=== PATIENT | female | born 1965 | race Two or more races ===

== ENCOUNTER 2017-10-14 10:14 | Outpatient (CLI) | payer OTHER | END 2017-10-14 19:23 | disposition home or self-care (01) | LOC: MAMMO 10:14 | DX: Z12.31 Encounter for screening mammogram for malignant neoplasm of breast (principal) ==

== ENCOUNTER 2018-10-23 10:11 | Outpatient (CLI) | payer OTHER | END 2018-10-23 22:22 | disposition home or self-care (01) | LOC: MAMMO 10:11 | DX: Z12.31 Encounter for screening mammogram for malignant neoplasm of breast (principal) ==

== ENCOUNTER 2019-12-07 13:31 | Outpatient (CLI) | payer OTHER | END 2019-12-07 16:00 | disposition home or self-care (01) | LOC: MAMMO 13:31 | DX: Z12.31 Encounter for screening mammogram for malignant neoplasm of breast (principal) ==

== ENCOUNTER 2021-05-05 09:20 | Outpatient (CLI) | payer OTHER | END 2021-05-05 22:41 | disposition home or self-care (01) | LOC: MAMMO 09:20 | PROVIDERS: ATTEND Internal Medicine | DX: Z12.31 Encounter for screening mammogram for malignant neoplasm of breast (principal) ==

== ENCOUNTER 2022-05-14 14:34 | Outpatient (CLI) | payer OTHER | END 2022-05-14 21:12 | disposition home or self-care (01) | LOC: MAMMO 14:34 | PROVIDERS: ATTEND Obstetrics & Gynecology | DX: Z12.31 Encounter for screening mammogram for malignant neoplasm of breast (principal) ==

== ENCOUNTER 2022-06-15 13:34 | Outpatient (CLI) | payer OTHER | END 2022-06-15 18:57 | disposition home or self-care (01) | LOC: US 13:34 | PROVIDERS: ATTEND Internal Medicine | DX: M79.605 Pain in left leg (principal); M25.552 Pain in left hip; S39.012A Strain of muscle, fascia and tendon of lower back, initial encounter; X58.XXXA Exposure to other specified factors, initial encounter; Y93.89 Activity, other specified; Y92.89 Other specified places as the place of occurrence of the external cause ==

== ENCOUNTER 2022-06-16 08:08 | Outpatient (CLI) | payer OTHER | END 2022-06-16 19:18 | disposition home or self-care (01) | LOC: CT 08:08 | PROVIDERS: ATTEND Internal Medicine | DX: M54.50 Low back pain, unspecified (principal) ==

== ENCOUNTER 2023-01-10 09:27 | Outpatient (CLI) | payer OTHER | END 2023-01-10 19:06 | disposition home or self-care (01) | LOC: RAD 09:27 | PROVIDERS: ATTEND Internal Medicine | DX: J40 Bronchitis, not specified as acute or chronic (principal) ==

== ENCOUNTER 2023-03-08 16:39 | Outpatient (CLI) | payer OTHER | END 2023-03-08 19:17 | disposition home or self-care (01) | LOC: RAD 16:39 | PROVIDERS: ATTEND Internal Medicine | DX: M54.2 Cervicalgia (principal) ==

== ENCOUNTER 2023-06-27 09:56 | Outpatient (CLI) | payer OTHER | END 2023-06-27 21:53 | disposition home or self-care (01) | LOC: MAMMO 09:56 | PROVIDERS: ATTEND Nurse Practitioner Family | DX: Z12.31 Encounter for screening mammogram for malignant neoplasm of breast (principal) ==